=== PATIENT | female | born 1985 | race Hispanic/Latino ===

== ENCOUNTER 2018-01-06 11:51 | Inpatient (IN) | payer BC ==
[2018-01-06 12:24] VITALS: BMI 20.3
[2018-01-06] MEDS ORDERED: Sodium Chloride 0.9% 1,000 ML IV ONE (13:07)
[2018-01-06] MEDS ORDERED: Sodium Chloride 0.9% 1,000 ML ONE (13:31)
[2018-01-06 13:32] LABS: BASO % 0.7 % (0.0-2.0); EOS % 0.2 % (0.0-4.0); HEMOGLOBIN 12.3 g/dL (11.0-16.0); LYMPH # 1.7 K/uL (1.0-4.3); LYMPH % 32.9 % (20.0-40.0); MEAN CELL VOLUME 88.5 fL (81.0-99.0); MEAN CORPUSCULAR HEMOGLOBIN 31.3 pg (27.0-31.0); MEAN CORPUSCULAR HGB CONC 35.4 g/dL (33.0-37.0); MEAN PLATELET VOLUME 7.2 fL (7.2-11.7); MONO # 0.7 K/uL (0.0-0.8); MONO % 12.5 % (0.0-10.0); NEUT # 2.8 K/uL (1.8-7.0); NEUT % 53.7 % (50.0-75.0); NRBC % 0.1 % (0.0-2.0); RBC 3.95 Mil/uL (3.80-5.20); RED CELL DISTRIBUTION WIDTH 13.6 % (11.5-14.5); WHITE BLOOD COUNT 5.2 K/uL (4.8-10.8)
[2018-01-06 13:46] LABS: ACETAMINOPHEN < 10.0 ug/mL (10.0-30.0); ALB/GLOB RATIO 1.3 (1.0-2.1); ALBUMIN 4.6 g/dL (3.5-5.0); ALT/SGPT 16 U/L (9-52); AST/SGOT 37 U/L (14-36); BLOOD UREA NITROGEN 14 mg/dL (7-17); CALCIUM 9.4 mg/dl (8.6-10.4); GFR AFRICAN-AMERICAN > 60; GFR NON-AFRICAN AMERICAN > 60; SALICYLATE < 1.0 mg/dL 1
[2018-01-06 13:55] LABS: SQUAMOUS EPITHIAL 7 /hpf (0-5); URINE BACTERIA FEW (<OCC); URINE BILIRUBIN NEGATIVE (NEGATIVE); URINE BLOOD NEGATIVE (NEGATIVE); URINE CLARITY Hazy (Clear); URINE COLOR Yellow (YELLOW); URINE GLUCOSE (UA) NORMAL (Normal); URINE LEUKOCYTE ESTERASE NEG Leu/uL (Negative); URINE PROTEIN NEGATIVE (NEGATIVE); URINE UROBILINOGEN NORMAL mg/dL (0.2-1.0)
[2018-01-06 14:08] LABS: BARBITURATES, UR NEGATIVE (NEGATIVE); OPIATES, UR NEGATIVE (NEGATIVE); PHENCYCLIDINE, UR NEGATIVE (NEGATIVE)
--- NOTE | 2018-01-06 14:24 | C.PDOC ---
History Of Present Illness 32 y/o female presents to the ER complaining of palpitations which began last night. Patient states that she has been drinking ETOH excessively. Patient reports that her sister recently. She feels like she is going to kill herself. Patient denies having CP, SOB, and homicidal ideation. Time Seen by Provider: 01/06/18 13:03 Chief Complaint (Nursing): Palpitations History Per: Patient History/Exam Limitations: no limitations Onset/Duration Of Symptoms: Days Current Symptoms Are (Timing): Still Present Severity: Moderate Past Medical History Reviewed: Historical Data, Nursing Documentation, Vital Signs Vital Signs: Last Vital Signs Temp 98.4 F 01/06/18 15:32 Pulse 104 H 01/06/18 15:32 Resp 20 01/06/18 15:32 BP 124/86 01/06/18 14:41 Pulse Ox 97 01/06/18 18:12 - Medical History PMH: No Chronic Diseases Surgical History: Appendectomy - [facility] Procedures SUTURE VAGINA LACERATION (05/20/06) Family History: States: No Known Family Hx - Social History Hx Alcohol Use: Yes Hx Substance Use: No - Immunization History Hx Tetanus Toxoid Vaccination: No Hx Influenza Vaccination: No Hx Pneumococcal Vaccination: No Review Of Systems Except As Marked, All Systems Reviewed And Found Negative. Constitutional: Negative for: Fever, Chills Cardiovascular: Positive for: Palpitations. Negative for: Chest Pain Respiratory: Negative for: Shortness of Breath Physical Exam - Physical Exam Appears: Non-toxic, Other (anxious, mildly tremulous) Skin: Normal Color, Warm, Dry Head: Atraumatic, Normacephalic Eye(s): bilateral: Normal Inspection Nose: Normal Oral Mucosa: Moist Chest: Symmetrical Cardiovascular: Rhythm Irregular (tachycardiac) Respiratory: Normal Breath Sounds, No Rales, No Rhonchi, No Wheezing Gastrointestinal/Abdominal: Normal Exam, Soft, No Tenderness Neurological/Psych: Oriented x3, Normal Speech ED Course And Treatment - Laboratory Results Result Diagrams: 01/06/18 13:29 01/06/18 13:29 ECG: Interpreted By Me, Viewed By Me ECG Rhythm: Sinus Tachycardia Interpretation Of ECG: Sinus Tachycardia with no ST/ T- wave changes Rate From EC O2 Sat by Pulse Oximetry: 97 (RA) Pulse Ox Interpretation: Normal - Radiology CXR: Interpreted by Me, Viewed By Me CXR Interpretation: Yes: No Acute Disease Medical Decision Making Medical Decision Making: Plan: --Labs --HCG --UA --CXR -- Ativan IV -- IV Fluids Disposition - Disposition Disposition: HOSPITALIZED Disposition Time: 01:00 Condition: FAIR - Clinical Impression Clinical Impression: Palpitations, Alcohol withdrawal, Suicidal ideation - Scribe Statement The provider has reviewed the documentation as recorded by the Erlindaibe Jim Britton Provider Attestation: All medical record entries made by the Erlindaibe were at my direction and personally dictated by me. I have reviewed the chart and agree that the record accurately reflects my personal performance of the history, physical exam, medical decision making, and the department course for this patient. I have also personally directed, reviewed, and agree with the discharge instructions and disposition.
[2018-01-06 14:28] LABS: BENZODIAZEPINES, UR POSITIVE (NEGATIVE)
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
--- NOTE | 2018-01-06 15:40 | RAD ---
PROCEDURE: CHEST RADIOGRAPH, 1 VIEW HISTORY: Detox/Psy COMPARISON: None available. FINDINGS: LUNGS: Clear. PLEURA: No pneumothorax or pleural fluid seen. CARDIOVASCULAR: Normal. OSSEOUS STRUCTURES: No significant abnormalities. VISUALIZED UPPER ABDOMEN: Normal. OTHER FINDINGS: None. IMPRESSION: No active disease.
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
[2018-01-06] MEDS: Sodium Chloride 0.9% 1,000 ML IV SCH (16:37)
[2018-01-06] MEDS ORDERED: Lidocaine 1%/Epinephrine 1:100000 30 ml vial IJ ONE (16:50)
[2018-01-06 20:14] LABS: CK-MB 0.55 ng/mL (0.0-3.38)
[2018-01-07] MEDS: Sodium Chloride 0.9% 1,000 ML IV SCH (01:00)
--- NOTE | 2018-01-07 04:23 | CON ---
DATE: 01/06/2018 REASON FOR CONSULTATION: Left tonsil lesion. HISTORY: This is a 32-year-old female with multiple medical history of left tonsil lesion on and off. The size is mild to moderate, and there is mild to moderate pain on the left side. It is constant and moderate in the area of the lesion. There is no hoarseness. PAST MEDICAL HISTORY: As noted in the chart by me. MEDICATIONS: As noted in the chart by me. ALLERGIES: NO KNOWN DRUG ALLERGIES. PHYSICAL EXAMINATION: HEAD: Atraumatic, normocephalic. FACE: Good facial movements bilaterally. CONSTITUTIONAL: Well fed, well nourished. COMMUNICATION: Communicates well and appropriately. EXTERNAL NOSE AND EARS: No masses. No lesions. No erythema. No edema. INTERNAL NOSE: Deviated septum. No masses. No lesions. No erythema. No edema. ORAL CAVITY AND OROPHARYNX: A 1.5 cm lesion on the left tonsil in the superior aspect of the left tonsil. It is bulging out as a mass. There is crusting on it. LIPS AND GUMS: No masses. No lesions. No erythema. No edema. NECK: Supple. THYROID: No thyromegaly, no goiter. LYMPHS: No lymphadenopathy of the neck. ASSESSMENT: 1. Left tonsil lesion. 2. Deviated septum. PLAN: We will do left tonsil lesion removal. Lorenzo Sesay MD MTDD
[2018-01-07 07:32] LABS: BASO % 0.8 % (0.0-2.0); EOS % 0.7 % (0.0-4.0); HEMOGLOBIN 11.2 g/dL (11.0-16.0); LYMPH # 2.3 K/uL (1.0-4.3); LYMPH % 50.9 % (20.0-40.0); MEAN CELL VOLUME 89.9 fL (81.0-99.0); MEAN CORPUSCULAR HGB CONC 34.5 g/dL (33.0-37.0); MEAN PLATELET VOLUME 7.6 fL (7.2-11.7); MONO # 0.5 K/uL (0.0-0.8); MONO % 11.7 % (0.0-10.0); NEUT # 1.6 K/uL (1.8-7.0); NEUT % 35.9 % (50.0-75.0); NRBC % 0.1 % (0.0-2.0); RBC 3.61 Mil/uL (3.80-5.20); RED CELL DISTRIBUTION WIDTH 13.5 % (11.5-14.5); WHITE BLOOD COUNT 4.5 K/uL (4.8-10.8)
[2018-01-07 07:45] LABS: ALB/GLOB RATIO 1.3 (1.0-2.1); ALBUMIN 3.6 g/dL (3.5-5.0); ALT/SGPT 13 U/L (9-52); AST/SGOT 30 U/L (14-36); BILIRUBIN,DIRECT 0.5 mg/dL (0.0-0.4); BLOOD UREA NITROGEN 8 mg/dL (7-17); CALCIUM 8.9 mg/dl (8.6-10.4); GFR AFRICAN-AMERICAN > 60; GFR NON-AFRICAN AMERICAN > 60; HDL CHOLESTEROL 102 mg/dL (30-70); LIPASE 70 U/L (23-300)
[2018-01-07 07:50] LABS: HEPATITIS B SURFACE AG Negative (NEGATIVE)
[2018-01-07 07:56] LABS: HEPATITIS A IGM NEGATIVE (NEGATIVE); HEPATITIS B CORE AB NEGATIVE (NEGATIVE)
[2018-01-07 08:07] LABS: HEPATITIS C ANTIBODY NEGATIVE (NEGATIVE)
[2018-01-07 08:09] LABS: LDL CHOLESTEROL 96 mg/dL (0-129)
[2018-01-07] MEDS ORDERED: Enoxaparin 40 mg Syringe SC SCH (10:00)
[2018-01-07] MEDS: Multiple Vitamins Tab PO SCH (10:42)
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
--- NOTE | 2018-01-07 12:59 | CARD ---
APPROVED REPORT EKG Measurement Heart [id number] <Conclusion> Sinus tachycardia Otherwise normal ECG
--- NOTE | 2018-01-07 14:01 | CP.PCM.PN ---
Subjective - Date & Time of Evaluation Date of Evaluation: 01/07/18 Time of Evaluation: 13:57 - Subjective Subjective: Patient seen and examined at bedside very anxious, denies suicidal ideations at this point admits to being depressed about the of her sister No other complaints at this time Objective - Vital Signs/Intake and Output Vital Signs (last 24 hours): Temp Pulse Resp BP Pulse Ox 97.6 F 83 20 104/67 97 01/07/18 07:05 01/07/18 07:05 01/07/18 07:05 01/07/18 07:05 01/07/18 07:05 Intake and Output: 01/07/18 01/07/18 06:59 18:59 Intake Total 500 Balance 500 - Medications Medications: Current Medications Chlordiazepoxide (Librium) 25 mg PO Q6 GEOVANY PRN Reason: Taper Stop: 01/11/18 11:59 Last Admin: 01/07/18 13:41 Dose: 25 mg Chlordiazepoxide (Librium) 25 mg PO Q6H PRN PRN Reason: Breakthru ETOH withdrawal Enoxaparin Sodium (Lovenox) 40 mg SC DAILY [facility] Last Admin: 01/07/18 10:40 Dose: 40 mg Escitalopram Oxalate (Lexapro) 5 mg PO DAILY [facility] Last Admin: 01/07/18 13:41 Dose: 5 mg Folic Acid (Folic Acid) 1 mg PO DAILY [facility] Last Admin: 01/07/18 10:40 Dose: 1 mg Nafcillin Sodium 2 gm/ Sodium (Chloride) 250 mls @ 250 mls/hr IVPB Q6H GEOVANY PRN Reason: Protocol Last Admin: 01/07/18 10:40 Dose: 250 mls/hr Multivitamins (Hexavitamin) 1 tab PO DAILY [facility] Last Admin: 01/07/18 10:42 Dose: 1 tab Sodium Phosphate (Fleet Enema) 135 ml [place] DAILY PRN PRN Reason: Constipation Last Admin: 01/07/18 13:44 Dose: 135 ml Thiamine HCl (Vitamin B1 Tab) 100 mg PO DAILY [facility] Last Admin: 01/07/18 10:40 Dose: 100 mg Trazodone HCl (Desyrel) 50 mg PO HS PRN PRN Reason: Insomnia Last Admin: 01/06/18 22:24 Dose: 50 mg - Labs Labs: 01/07/18 06:56 01/07/18 06:56 - Constitutional Appears: Well - Head Exam Head Exam: ATRAUMATIC, NORMAL INSPECTION, NORMOCEPHALIC - Eye Exam Eye Exam: EOMI, Normal appearance, PERRL Pupil Exam: NORMAL ACCOMODATION, PERRL - ENT Exam ENT Exam: Mucous Membranes Moist, Normal Exam - Neck Exam Neck Exam: Full ROM, Normal Inspection. absent: Lymphadenopathy - Respiratory Exam Respiratory Exam: Clear to Ausculation Bilateral, NORMAL BREATHING PATTERN - Cardiovascular Exam Cardiovascular Exam: REGULAR RHYTHM, +S1, +S2. absent: Murmur - GI/Abdominal Exam GI & Abdominal Exam: Soft, Normal Bowel Sounds. absent: Tenderness - Extremities Exam Extremities Exam: Full ROM, Normal Capillary Refill, Normal Inspection. absent : Joint Swelling, Pedal Edema - Back Exam Back Exam: NORMAL INSPECTION - Neurological Exam Neurological Exam: Alert, Awake, CN II-XII Intact, Normal Gait, Oriented x3 - Psychiatric Exam Psychiatric exam: Normal Affect, Normal Mood - Skin Skin Exam: Dry, Intact, Normal Color, Warm Assessment and Plan (1) Alcohol withdrawal Assessment & Plan: Librium taper folic acid multivitamin thiamine Accepted to Detox, patient is medically stable for transfer to detox to continue her care Status: Acute (2) Tonsillar abscess Assessment & Plan: ENT ([facility]) will plan on removal of tonsilar abscess continue IV Abx for now, change to PO when going to detox - should continue Augmentin 875 BID for additional 10 days to end on 01/17/18 along with floraster for 40 days Status: Acute (3) Prophylactic measure Assessment & Plan: lovenox 40 sc qd No GI PPX needed at this sonia Status: Acute
[2018-01-07] MEDS: Amoxicillin-Clav 875-125 mg Tab PO SCH ×2 (17:00→18:02)
--- NOTE | 2018-01-07 17:03 | PCM.BM ---
<LaishaSandy - Last Filed: 01/07/18 17:02> Treatment Plan Problems - Problems identified on initial assessmt Potential for alcohol withdrawal Date Initiated: 01/07/18 Time Initiated: 17:02 Assessment reference: NA Status: Active Treatment assets and liabiliti Patient Assests: ADL independent, negotiates basic needs, cognitively intact Patient Liabilities: substance abuse (ETOH) - Milieu Protocol Maintain good personal hygiene: daily Encourage regular showers, daily Remind patient to perform daily oral care, daily Assist patient to perform ADL's Conduct patient checks and document Observation sheet: Q15 minutes Maintain personal safety: every shift Educate patient to report safety concerns to staff, every shift Monitor environment for contraband/sharps Medication safety: Monitor for expected outcome, potential side effects: every shift, Assess barriers to learning: every shift, Assess readiness for medication education: every shift <Rosie Coery - Last Filed: 01/10/18 09:33> - Diagnosis (1) Alcohol use disorder, severe, dependence Status: Acute Interventions: 01/10/18 09:33 * Assess 7x/week regarding severity of withdrawal * Educate regarding risks, benefits, side effects and alternatives of medications * Use Motivational Interviewing for abstinence * Use CBT for relapse prevention * Medication management for withdrawal symptoms * Encourage medication assisted treatment *
[2018-01-07] MEDS: Saccharomyces Boulardi 250 mg Cap PO SCH (18:03)
[2018-01-07] MEDS: Vitamins A & D Oint UD Foilpak TOP PRN (20:55)
[2018-01-08] MEDS: Amoxicillin-Clav 875-125 mg Tab PO SCH ×2 (05:24→17:33)
[2018-01-08] MEDS: Saccharomyces Boulardi 250 mg Cap PO SCH ×2 (09:51→18:00)
[2018-01-08] MEDS: Multiple Vitamins Tab PO SCH (09:51)
--- NOTE | 2018-01-08 15:09 | PCM.PYCHPN ---
Psychiatric Progress Note - Psychiatric Progress Note Patient seen today, length of contact: 25 min Patient Chief Complaint: "I need something to calm down my nerves" Problems Identified/Issues Discussed: The pt is seen, chart reviewed, case discussed with staff. The pt is compliant with medications and reports no side-effects. Symptoms are improving but needs more time to stabilize. After care discussed, support and psychoeducation given. Pt appeared to be very emotional, anxious and depressed today, she was very tearful as she spoke about traumatic events in her life Pt tends to repeat the same stories and goes off tangents. 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 She agreed She is also n lexapro for dep/anx She asked to leave but then policy writer sales spoke about risks and she agreed to complete detox Medication Change: Yes (Detox changes daily) Medical Record Reviewed: Yes Mental Status Examination - Cognitive Function Orientation: Person, Place, Situation, Time Memory: Intact Attention: Poor Concentration: Poor Association: Loose Fund of Knowledge: WNL - Mood Mood: Depressed, Anxious - Affect Affect: Blunted, Depressed - Speech Speech: Soft (child like at times) - Formal Thought Process Formal Thought Process: No Impairment - Suicidal Ideation Suicidal Ideation: No - Homicidal Ideation Homicidal Ideation: No Goal/Treatment Plan - Goal/Treatment Plan Need for Continued Stay: Discharge may exacerbated symptoms, Severe functional impairment Progress Toward Problem(s) and Goals/Treatment Plan: Librium detox Seroquel and lexapro for mood sxs and anxiety As needed medications Gabapentin for augmentation All risks, benefits and alternatives of medications, including no medications, discussed and the patient understood and agreed. Attend groups and activities Supportive therapy and psychoeducation DC for abstinence CBT for relapse prevention Encourage MAT Refer to rehab or IOP Attend self-help groups as well DC for smoking cessation and patch if needed
--- NOTE | 2018-01-08 20:25 | CARD ---
APPROVED REPORT EXAM: Two-dimensional and M-mode echocardiogram with Doppler and color Doppler. Other Information Quality : GoodRhythm : INDICATION Palpitations Alcohol use disorder 2D DIMENSIONS IVSd0.6 (0.7-1.1cm)Aortic Root (2D)3.1 (2.0-3.7cm) LVDd4.9 (3.9-5.9cm)PWd0.5 (0.7-1.1cm) LVDs2.5 (2.5-4.0cm)FS (%) 48.9 % LVEF (%)70.0 (>50%) M-Mode DIMENSIONS RVDd2.19 (2.1-3.2cm)Left Atrium (MM)3.67 (2.5-4.0cm) IVSd0.82 (0.7-1.1cm)Aortic Root2.55 (2.2-3.7cm) LVDd4.52 (4.0-5.6cm)Aortic Cusp Exc.1.83 (1.5-2.0cm) PWd0.79 (0.7-1.1cm)FS (%) 38 % LVDs2.82 (2.0-3.8cm)LVEF (%)68 (>50%) Mitral Valve MV E Eurxdzlx35.6cm/sMV A Jyktbvmc35.1cm/sE/A ratio2.5 TDI E/Lateral E'0.0E/Medial E'0.0 Tricuspid Valve TR Peak Sqmibgmf388nr/sTR Peak Gr.[id number] LEFT VENTRICLE The left ventricle is normal size. There is normal left ventricular wall thickness. The left ventricular function is normal. The left ventricular ejection fraction is within the normal range. No regional wall motion abnormalities noted. The left ventricular diastolic function is normal. No left ventricle thrombus noted on this study. There is no ventricular septal defect visualized. There is no left ventricular aneurysm. There is no mass noted in the left ventricle. RIGHT VENTRICLE The right ventricle is normal size. There is normal right ventricular wall thickness. The right ventricular systolic function is normal. ATRIA The left atrium size is normal. The right atrium size is normal. The interatrial septum is intact with no evidence for an atrial septal defect. AORTIC VALVE The aortic valve is normal in structure and function. No aortic regurgitation is present. There is no aortic valvular stenosis. There is no aortic valvular vegetation. MITRAL VALVE The mitral valve is normal in structure and function. There is no evidence of mitral valve prolapse. There is no mitral valve stenosis. There is no mitral valve regurgitation noted. TRICUSPID VALVE The tricuspid valve is normal in structure and function. There is no tricuspid valve regurgitation noted. There is no tricuspid valve prolapse or vegetation. There is no tricuspid valve stenosis. PULMONIC VALVE The pulmonary valve is normal in structure and function. There is no pulmonic valvular regurgitation. There is no pulmonic valvular stenosis. GREAT VESSELS The aortic root is normal in size. The ascending aorta is normal in size. The pulmonary artery is normal. The IVC is normal in size and collapses >50% with inspiration. PERICARDIAL EFFUSION The pericardium appears normal. There is no pleural effusion. <Conclusion> The left ventricular function is normal. The left ventricular ejection fraction is within the normal range. No regional wall motion abnormalities noted. The aortic valve is normal in structure and function. The mitral valve is normal in structure and function.
[2018-01-09] MEDS: Amoxicillin-Clav 875-125 mg Tab PO SCH ×2 (05:16→17:04)
[2018-01-09] MEDS ORDERED: ceFAZolin 1 gm in NS 0 GM/0 ML BAG IVPB ONE (09:16)
[2018-01-09] MEDS ORDERED: Propofol 10 mg/ml Inj (20 ML) ONE ×2 (09:22→09:41)
[2018-01-09] MEDS ORDERED: Midazolam 2 MG/2 ML VIAL ONE (09:22)
[2018-01-09] MEDS ORDERED: Succinylcholine Chloride 20 mg/ml Syr (5 ml) IV ONE (09:24)
[2018-01-09] MEDS ORDERED: HYDROmorphone 0.5 mg/0.5 ml ISec IVP PRN (10:05)
[2018-01-09] MEDS: Saccharomyces Boulardi 250 mg Cap PO SCH ×2 (11:57→17:21)
[2018-01-09] MEDS: Multiple Vitamins Tab PO SCH (11:58)
--- NOTE | 2018-01-09 14:17 | PCM.PYCHPN ---
Psychiatric Progress Note - Psychiatric Progress Note Patient seen today, length of contact: 20 min Patient Chief Complaint: "I am so anxious!" Problems Identified/Issues Discussed: The pt is seen, chart reviewed, case discussed with staff. Detox is going well But she had a tonsil surgery and she had some increased anxiety bc of that Plus she wanted to see her mo but they couldn't meet before/after surgery and she got disappointed She is improving but there is smt very odd and peculiar with her. Speech is odd , at times disorganized, pre-delusional themes come up at times, affect is constricted, etc. She may be developing (if she is not already) psychosis She is strongly advised to stay clear off benzos and alcohol and must see a psychiatrist and therapist She agreed Medication Change: Yes (Detox changes daily) Medical Record Reviewed: Yes Mental Status Examination - Cognitive Function Orientation: Person, Place, Situation, Time Memory: Intact Attention: Poor Concentration: Poor Association: Loose Fund of Knowledge: WNL - Mood Mood: Depressed, Anxious - Affect Affect: Constricted - Speech Speech: Soft - Formal Thought Process Formal Thought Process: No Impairment - Suicidal Ideation Suicidal Ideation: No - Homicidal Ideation Homicidal Ideation: No Goal/Treatment Plan - Goal/Treatment Plan Need for Continued Stay: Discharge may exacerbated symptoms, Severe functional impairment Progress Toward Problem(s) and Goals/Treatment Plan: Librium detox ending soon Tramadol, ibuprofen and tylenol added Continue seroquel and lexapro As needed medications Gabapentin for augmentation if needed All risks, benefits and alternatives of medications, including no medications, discussed and the patient understood and agreed. Attend groups and activities Supportive therapy and psychoeducation [place] for abstinence CBT for relapse prevention Encourage MAT Refer to rehab or IOP Attend self-help groups as well [place] for smoking cessation and patch if needed Estimated Date of D/C: 01/10/18
[2018-01-09] MEDS: Benzocaine/Menthol (Cepacol) Lozenge MT PRN (17:35)
--- NOTE | 2018-01-09 21:30 | OP ---
PROCEDURE DATE: 01/09/2018 PREOPERATIVE DIAGNOSIS: Left tonsillar lesion. POSTOPERATIVE DIAGNOSIS: Left tonsillar lesion. PROCEDURE: Removal of left tonsillar lesion. DESCRIPTION OF PROCEDURE: The patient was brought into the room, placed in a supine position. Anesthesia was initiated through an ET tube. The patient was draped in the usual manner. A mouth gag was placed in the oral cavity, opened and suspended on the [employer] residential air sealing technician the usual manner. The lesion was noted on the superior aspect of the left tonsil. It was grabbed and pulled medially. A plasma knife was used to dissect around the lesion and remove it. Bleeding was controlled using plasma knife. The mouth gag was taken out and removed. The patient was taken off anesthesia and taken to recovery room in stable manner. Lorenzo Sesay MD
[2018-01-10] MEDS: Amoxicillin-Clav 875-125 mg Tab PO SCH (05:10)
[2018-01-10] MEDS: Benzocaine/Menthol (Cepacol) Lozenge MT PRN (09:11)
[2018-01-10 09:25] VITALS: BP 90/52; PULSE 84; RESP 20; TEMP 99; O2SAT 98
[2018-01-10] MEDS: Vitamins A & D Oint UD Foilpak TOP PRN (10:02)
[2018-01-10] MEDS: Multiple Vitamins Tab PO SCH (10:02)
[2018-01-10] MEDS: Saccharomyces Boulardi 250 mg Cap PO SCH (10:03)
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
== END 2018-01-10 12:25 | disposition home or self-care (01) | DRG 982 ==
LOC: C.ER 11:51 → C.9E 13:54 → C.6T 14:23 → C.7D 01-07 16:52
PROVIDERS: ADMIT Psychiatry & Neurology Psychiatry; ATTEND Psychiatry & Neurology Psychiatry
PROC: 0CBPXZZ Excision of Tonsils, External Approach (ICD-10-PCS; principal; 2018-01-09 10:45)
DX: F10.239 Alcohol dependence with withdrawal, unspecified (principal); R45.851 Suicidal ideations; F33.1 Major depressive disorder, recurrent, moderate; Y90.0 Blood alcohol level of less than 20 mg/100 ml; Z79.01 Long term (current) use of anticoagulants; F41.9 Anxiety disorder, unspecified; Z91.5 Personal history of self-harm; Z81.1 Family history of alcohol abuse and dependence; K59.00 Constipation, unspecified; G47.00 Insomnia, unspecified; R00.0 Tachycardia, unspecified; R00.2 Palpitations; F90.9 Attention-deficit hyperactivity disorder, unspecified type; F43.10 Post-traumatic stress disorder, unspecified; Z81.8 Family history of other mental and behavioral disorders; Z81.3 Family history of other psychoactive substance abuse and dependence; F13.90 Sedative, hypnotic, or anxiolytic use, unspecified, uncomplicated; J34.2 Deviated nasal septum; J35.8 Other chronic diseases of tonsils and adenoids